=== PATIENT | female | born 1995 | race Caucasian/White ===

== ENCOUNTER 2022-12-26 15:49 | Emergency (ER) | payer MEDICAID, SELFPAY ==
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
[2022-12-26 15:55] VITALS: BP 136/83; PULSE 113; O2SAT 100
[2022-12-26 15:56] VITALS: BP 141/97; PULSE 104; RESP 16; TEMP 36.6; O2SAT 100; BMI 38.2
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
[2022-12-26] MEDS: Cyclobenzaprine HCl 5 MG TABLET PO (18:09)
[2022-12-26 18:24] LABS: UPreg QC Valid YES; Urine Pregnancy NEGATIVE (NEGATIVE)
== END 2022-12-26 19:58 | disposition home or self-care (01) ==
PROVIDERS: Physician Assistant; Emergency Provider Emergency Medicine
DX: Z04.1 Encounter for examination and observation following transport accident (principal); G89.11 Acute pain due to trauma; M54.2 Cervicalgia; M25.512 Pain in left shoulder; R51.9 Headache, unspecified
CPT/HCPCS: 70450; 72125; 73000; 81025; 99283; 99284